=== PATIENT | female | born 1980 | race Caucasian/White ===

== ENCOUNTER → 2016-10-08 15:06 | Observation (INO) ==
[2016-10-08 13:59] LABS: Bilirubin,Urine Negative (Negative); Blood,Urine Negative (Negative); Clarity,Urine Cloudy (Clear); Color,Urine Yellow (Yellow); Glucose,Urine (UA) Normal (Normal); Ketones,Urine Negative (Negative); Leukocyte Esterase,Urine Trace (Negative); Nitrite,Urine Negative (Negative); PH,Urine 6.5 pH Units (5.0-8.0); Protein,Urine Negative (Neg-Trace); Specific Gravity,Urine 1.013 (1.010-1.025); Urobilinogen,Urine Normal (Normal)
[2016-10-08 14:04] LABS: Bacteria,Urine Few per hpf (None-Few); Hyaline Casts,Urine None Seen per lpf (None-Few); RBC,Urine 0-3 per hpf (0-3); Squamous Epithelial Cell,Urine Many per lpf (None-Few)
--- NOTE | 2016-10-08 14:52 | Discharge Summary ---
Date of Encounter: 10/08/16 Time of Encounter: 14:52 - Discharge Diagnosis (1) Decreased movement Priority: Primary Status: Acute Comments: 36-year-old female 28 weeks presents with decreased movement. Cramping began last night intermittent throughout today. Concerned for decreased movement today while at work. Upon evaluation she noticed return of normal activity most movements felt. heart rate appropriate for gestational age. Denies any other complaints such as fever, nausea, urinary complaints. Urinalysis appears contaminated with many squamous cells and not consistent with infection. Patient is stable for discharge home with appropriate follow-up. (2) 28 weeks gestation of Priority: Primary Status: Acute (3) contractions Priority: Primary Status: Acute Comments: Reports feeling contractions last night during dinner. After dinner, and continued throughout the night. by several minutes and with no regularity. None today. Rare contractions noted on monitor patient currently denies any pain cramping or contractions. FFN negative. Internal cervical os closed and long. Discussed patient with Dr. Lomeli and appropriate for discharge home - Discharge Medications Home Medications: Vit Calc,Iron,Folic [ Vitamins] 1 tab PO DAILY 10/08/16 [ History] Allergies/Adverse Reactions: Allergies No Known Allergies Allergy (Verified 09/22/16 14:27) Data Procedures and tests throughout hospitalization: Laboratory Tests 10/08/16 10/08/16 13:50 14:10 Urine Color Yellow Urine Clarity Cloudy A Urine pH 6.5 Ur Specific [place] 1.013 Urine Protein Negative Urine Glucose (UA) Normal Urine Ketones Negative Urine Blood Negative Urine Nitrite Negative Urine Bilirubin Negative Urine Urobilinogen Normal Ur Leukocyte Esterase Trace H Urine Microscopic RBC 0-3 Urine Microscopic WBC 5-15 H Ur Squamous Epith Cells Many H Urine Bacteria Few Hyaline Casts None Seen Ur Culture Indicated? YES A Fibronectin Negative Labs on day of discharge: Labs from last 24 hours 10/08/16 10/08/16 14:10 13:50 Urine Color Yellow Urine Clarity Cloudy A Urine pH 6.5 Ur Specific [place] 1.013 Urine Protein Negative Urine Glucose (UA) Normal Urine Ketones Negative Urine Blood Negative Urine Nitrite Negative Urine Bilirubin Negative Urine Urobilinogen Normal Ur Leukocyte Esterase Trace H Urine Microscopic RBC 0-3 Urine Microscopic WBC 5-15 H Ur Squamous Epith Cells Many H Urine Bacteria Few Hyaline Casts None Seen Ur Culture Indicated? YES A Fibronectin Negative Date of admission: 10/08/16 13:22 Primary care physician: Alejandro Valdez, Discharging clinician: Joya Hill Anticipated date of discharge: 10/08/16 - Patient Status Disposition: Home, Self-Care Condition: Good Functional capacity at discharge: independent ambulation Overall status at discharge: patient is back to baseline - Discharge Instructions Follow Up With: Alejandro Valdez DO [Primary Care Provider] - Isabela Rodriguez CNM [Non-Partnered Physician] - Additional Instructions: LABOR AND DELIVERY DISCHARGE INSTRUCTIONS Signs and Symptoms to be Reported to your Doctor Immediately: * Sudden gush, continuous or intermittent lead of fluid from vagina (note the time of gush and color of fluid) * Onset of bright red vaginal bleeding with or without pain (if you had a vaginal exam during this visit you may notice some dark red spotting. This is normal.) * Lower abdominal cramping or backache that is premenstrual-like feeling. * More than 6 contractions in one hour. * Burning during urination, having to urinate more frequently or pain in your mid-back. * A change in the baby's activity. This could be an increase or decrease in activity. * Severe headache which does not go away with tylenol. * Sudden swelling in the face, hands, arms and/or legs. * Upper abdominal pain - sometimes associated with heartburn or nausea and is not relieved by Maalox, Mylanta or Tums. * Dizziness or blurred vision or visual disturbances (seeing stars/lights). * Kick Counts One hour after a meal, lay down on one side in a quiet place. Count the number of julia the baby moves during an hour. If less than 6 movements, notify your physician. Diet: *Force fluids - 8-10 tall glasses of fluid per day. May include popsicles and jello. 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 Absent: respiratory distress - Cardiovascular Cardiovascular exam IM: Present: RRR, +S1, +S2. Absent: irregular rhythm - GI/Abdominal GI/Abdominal exam IM: normal bowel sounds - Additional comments: soft and non tender. - Extremities Exam Extremities exam IM: Present: full ROM, normal capillary refill, pedal edema. Absent: calf tenderness, tenderness - Neurological Exam Neurological exam: alert, normal gait, oriented X3, reflexes normal - VTE Reasons for not Prescribing Prophylaxis: Treatment not Indicated - Low risk for VTE
[2016-10-08 15:05] LABS: Candida DNA ***DETECTED*** (Not Detect); Gardnerella DNA Not Detected (Not Detect); Trichomonas DNA Not Detected (Not Detect)
== END | disposition home or self-care (01) ==
LOC: 1NENULAB
PROVIDERS: ADMIT Advanced Practice Midwife; ATTEND Advanced Practice Midwife

== ENCOUNTER 2016-11-21 14:55 | Observation (INO) ==
[2016-11-21 18:40] LABS: Trichomonas DNA Not Detected (Not Detect)
[2016-11-21 18:41] LABS: Candida DNA ***DETECTED*** (Not Detect); Gardnerella DNA Not Detected (Not Detect)
--- NOTE | 2016-12-17 15:23 | OB/GYN Progress Note ---
Date of Encounter: 12/17/16 Time of Encounter: 15:21 - Assessment and Plan (1) 38 weeks gestation of Current Visit: Yes Status: Acute (2) NST (non-stress test) reactive Current Visit: No Status: Acute (3) Pelvic pain affecting in third trimester, antepartum Current Visit: No Status: Acute (4) Uterine contractions during Current Visit: No Status: Acute SVE with no change x 2 exams. Discharge home with labor precautions. Comfort measures discussed. Subjective - Subjective Interval history: 36 year-old presenting at 38 weeks with c/o cramping, pressure, and lower back pain. She denies LOF or VB. Good FM. She recently had a urine culture that was negative and she denies new urinary sx today. Antepartum ROS: movement normal, contractions, no loss of fluid, no vaginal bleeding Objective - Exam FHR: category 1 FHR comments: NST reactive Auscultation: bilateral: normal Abdomen: Present: soft, gravid. Absent: tenderness Uterus: Present: normal. Absent: tenderness Cervical dilation: 3 Cervix effacement: 70 station: -1 Comments: no change on repeat exam - Labs Labs: Abnormal lab results Betzy species DNA DETECTED (Not Detect) Sonia 11/21/16 11:15
== END 2016-12-17 15:33 | disposition home or self-care (01) ==
LOC: LABOMLPBB 14:55 → 1NENULAB 14:55 → LABOMLPBB 14:56
PROVIDERS: ADMIT Registered Nurse; ATTEND Registered Nurse

== ENCOUNTER → 2016-11-27 16:00 | Observation (INO) ==
[2016-11-27 14:47] VITALS: BP 120/79
--- NOTE | 2016-11-27 15:08 | OB/GYN Progress Note ---
Date of Encounter: 11/27/16 Time of Encounter: 15:04 - Assessment and Plan (1) 35 weeks gestation of Current Visit: Yes Status: Acute admited for observation (2) NST (non-stress test) reactive Current Visit: Yes Status: Acute 135 bpm baseline, reactive NST (3) Pelvic pain affecting in third trimester, antepartum Current Visit: Yes Status: Acute INFANT is VTX, head noted on pubic bone: discussed comfort interventions. Subjective - Subjective Principal diagnosis: pelvic pain and pressure Interval history: Patient is 36 y/o female that is a at 35w1d presents to labor and delivery with c/o increased pelvic pain and pressure. Patient reports pressure to be stronger when standing or walking. Patient denies contractions, LOF or VB. Patient reports +FM but reports movement was decreased. Patient denies any urinary symptoms. SVE 1/thick. GBS culture collected prior to SVE. NST reactive. FHR 135 bpm moderate variability +15x15 accels no decels noted. Antepartum ROS: no loss of fluid, no vaginal bleeding, no contractions Objective - Vital Signs Vital Signs: Vital Signs Temp Pulse Resp BP 11/27/16 14:37 98.3 F 90 20 120/79 Intake and Output 11/26/16 11/27/16 11/27/16 23:59 07:59 15:59 Other: Weight 73.2 kg Patient Weight 11/27/16 23:59 Weight 73.2 kg - Exam FHR: auscultation normal, category 1 FHR comments: baseline 135 bpm moderate variability +15x15 accels no decels noted. no contractions noted. Auscultation: bilateral: normal Abdomen: Present: normal appearance, soft, gravid Uterus: Present: normal, firm Cervical dilation: 1 Cervix effacement: thick station: -2
[2016-11-27 15:15] LABS: Bilirubin,Urine Negative (Negative); Blood,Urine Negative (Negative); Color,Urine Yellow (Yellow); Glucose,Urine (UA) Normal (Normal); Ketones,Urine Negative (Negative); Leukocyte Esterase,Urine Small (Negative); Nitrite,Urine Negative (Negative); PH,Urine 6.5 pH Units (5.0-8.0); Protein,Urine Negative (Neg-Trace); Specific Gravity,Urine 1.011 (1.010-1.025); Urobilinogen,Urine Normal (Normal)
[2016-11-27 15:17] LABS: Clarity,Urine Clear (Clear)
[2016-11-27 15:18] LABS: Bacteria,Urine Many per hpf (None-Few); Hyaline Casts,Urine None Seen per lpf (None-Few); Squamous Epithelial Cell,Urine Many per lpf (None-Few)
[2016-11-27 15:35] LABS: RBC,Urine 0-3 per hpf (0-3)
--- NOTE | 2016-11-27 15:50 | Discharge Summary ---
Date of Encounter: 11/27/16 Time of Encounter: 15:49 - Discharge Diagnosis (1) 35 weeks gestation of Priority: Primary Status: Acute Comments: false labor (2) NST (non-stress test) reactive Priority: Secondary Status: Acute Comments: reactive nst (3) Pelvic pain affecting in third trimester, antepartum Priority: Secondary Status: Acute - Discharge Medications Home Medications: Vit Calc,Iron,Folic [ Vitamins] 1 tab PO DAILY 10/08/16 [ History] Famotidine [Pepcid] 40 mg PO 11/27/16 [History] Allergies/Adverse Reactions: Allergies No Known Allergies Allergy (Verified 11/27/16 14:47) Data Procedures and tests throughout hospitalization: Laboratory Tests 11/27/16 14:45 Urine Color Yellow Urine Clarity Clear Urine pH 6.5 Ur Specific [place] 1.011 Urine Protein Negative Urine Glucose (UA) Normal Urine Ketones Negative Urine Blood Negative Urine Nitrite Negative Urine Bilirubin Negative Urine Urobilinogen Normal Ur Leukocyte Esterase Small H Urine Microscopic RBC 0-3 Urine Microscopic WBC 5-15 H Ur Squamous Epith Cells Many H Urine Bacteria Many H Hyaline Casts None Seen Ur Culture Indicated? YES A Labs on day of discharge: Labs from last 24 hours 11/27/16 14:45 Urine Color Yellow Urine Clarity Clear Urine pH 6.5 Ur Specific [place] 1.011 Urine Protein Negative Urine Glucose (UA) Normal Urine Ketones Negative Urine Blood Negative Urine Nitrite Negative Urine Bilirubin Negative Urine Urobilinogen Normal Ur Leukocyte Esterase Small H Urine Microscopic RBC 0-3 Urine Microscopic WBC 5-15 H Ur Squamous Epith Cells Many H Urine Bacteria Many H Hyaline Casts None Seen Ur Culture Indicated? YES A Date of admission: 11/27/16 14:07 Primary care physician: PCP NO Discharging clinician: Candie Burgess (olena) Anticipated date of discharge: 11/27/16 - Patient Status Disposition: Home, Self-Care Condition: Good Functional capacity at discharge: independent ambulation - Discharge Instructions Follow Up With: NO,PCP [Primary Care Provider] - Isabela Rodriguez CNM [Non-Partnered Physician] - - Diet and Activity Activity: increase activity as tolerated Diet: regular diet Hospital Course METAL CLEANER Time Attestation: Total time spent providing and/or coordinating discharge services: Time Spent: Less than 30 minutes Exam - Constitutional Vitals: Temp Pulse Resp BP 98.3 F 90 20 120/79 05/30/17 14:37 11/27/16 14:37 11/27/16 14:37 11/27/16 14:37 General appearance IM: A&O X 3, pleasant, answers questions appropriately - Respiratory Respiratory exam: Present: CTAB - Cardiovascular Cardiovascular exam IM: Present: RRR, +S1, +S2 - VTE Reasons for not Prescribing Prophylaxis: Treatment not Indicated - Low risk for VTE
== END | disposition home or self-care (01) ==
LOC: 1NENULAB
PROVIDERS: ADMIT Obstetrics & Gynecology; ATTEND Obstetrics & Gynecology

== ENCOUNTER → 2016-12-11 13:36 | Observation (INO) ==
[2016-12-11 09:39] LABS: Bilirubin,Urine Negative (Negative); Blood,Urine Negative (Negative); Clarity,Urine Cloudy (Clear); Color,Urine Yellow (Yellow); Glucose,Urine (UA) Normal (Normal); Ketones,Urine Negative (Negative); Leukocyte Esterase,Urine Trace (Negative); Nitrite,Urine Negative (Negative); Protein,Urine Trace mg/dL (Neg-Trace); Specific Gravity,Urine 1.015 (1.010-1.025); Urobilinogen,Urine Normal (Normal)
[2016-12-11 09:42] LABS: Bacteria,Urine Many per hpf (None-Few); Hyaline Casts,Urine None Seen per lpf (None-Few); Squamous Epithelial Cell,Urine Many per lpf (None-Few); WBC,Urine 15-30 per hpf (0-3)
[2016-12-11 09:53] LABS: Mucus,Urine Few (Few); RBC,Urine 0-3 per hpf (0-3)
[2016-12-11 12:01] LABS: Basophils # 0.1 K/mcL (0.0-0.2); Basophils % 0.4 %; Eosinophils # 0.1 K/mcL (0.0-0.6); Eosinophils % 0.8 %; Hematocrit 36.1 % (35.3-44.9); Hemoglobin 11.9 g/dL (11.5-15.4); Immature Granulocytes % 1.9 % (0-4); Immature Platelets 11.8 % (1.1-6.1); Lymphocytes # 1.6 K/mcL (0.6-4.6); Lymphocytes % 12.8 %; Mean Corpuscular Hemoglobin 27.6 pg (28.0-33.3); Mean Corpuscular Volume 83.8 fL (83.0-100.0); Mean Platelet Volume 11.6 fL (9.4-12.4); Monocytes # 0.8 K/mcL (0.0-1.3); Monocytes % 6.6 %; Neutrophils # 9.8 K/mcL (1.6-8.9); Nucleated Red Blood Cells 0.2 /100 WBC (0); Platelet Count 195 K/mcL (140-400); Red Blood Count 4.31 M/mcL (3.82-4.97); Red Cell Distribution Width 13.5 % (11.5-14.5); Segmented Neutrophils % 77.5 %
[2016-12-11 12:20] LABS: Alanine Aminotransferase 15 Units/L (0-55); Aspartate Amino Transferase 27 Units/L (5-34); BUN/Creatinine Ratio 12 (6-26); Blood Urea Nitrogen 7 mg/dL (7-20); Lactate Dehydrogenase 292 Units/L (159-327); Uric Acid 4.6 mg/dL (2.6-6.0); eGFR For African Americans > 60 (> 60); eGFR For Non-African Americans > 60 (> 60)
[2016-12-11 12:55] LABS: Protein/Creatinine Ratio,Urine 0.42 mg/mg (0-0.20)
--- NOTE | 2016-12-11 13:24 | Discharge Summary ---
Date of Encounter: 12/11/16 Time of Encounter: 13:28 - Discharge Diagnosis (1) 37 weeks gestation of Priority: Primary Status: Acute Comments: Patient arrived to labor and delivery triage with c/o decreased movement and pain in her right leg associated with an increase in swelling. She states positive, but decreased movement. She denies headache, epigastric pain, visual disturbances, leaking of lfuid, vaginal discharge, and contractions/ cramping. She states that she was seen last week () and diagnosed with cellulitis in the lower abdomen by Flynn Hill CNM and Dr. Borja and is currently on Bactrim. She states that her right lower leg began hurting this mornring and that it is more swollen than the other leg; it is tender to touch on her right posterior calf. She is concerned her cellulitis has spread to this area of her body. 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 POC per consult with Dr Armani Lomeli assessed patient and recommended PIH labs due to increase in edema. PIH labs within normal limits. Serial blood pressures WNL Urine protein creatinine ratio 0.42. Continue outpatient monitoring PIH precautions given Labor precautions given Follow up in office with routine as scheduled tomorrow. (2) Uterine contractions during Priority: Secondary Status: Acute Comments: Contractions appeared to be irritability on the monitor upon initial presentation. Urine sent for urinalysis and culture - urine contaminated, culture pending IV fluid bolus of LR x 1 liter Irritability has stopped upon discharge, but contractions have started every 3- 5 minutes. Serial cervical exam per RN - No change. Discharge home with labor precautions (3) Edema of right lower extremity Priority: Primary Status: Acute Comments: Venous doppler negative Continue to monitor POC per consult with Dr Lomeli (4) Decreased movement Priority: Primary Status: Acute Comments: Movement felt by patient upon NST initiation NST reactive. (5) NST (non-stress test) reactive Priority: Primary Status: Acute Comments: Category I tracing; NST reactive Follow up in office with routine care as scheduled. IOL scheduled for 39 weeks per chart. - Discharge Medications Home Medications: Vit Calc,Iron,Folic [ Vitamins] 1 tab PO DAILY 10/08/16 [ History] Famotidine [Pepcid] 40 mg PO 11/27/16 [History] Bactrim 12/11/16 [History] Allergies/Adverse Reactions: Allergies No Known Allergies Allergy (Verified 11/27/16 14:47) Data Procedures and tests throughout hospitalization: Laboratory Tests 12/11/16 12/11/16 12/11/16 09:30 11:41 11:41 WBC 12.6 H RBC 4.31 Hgb 11.9 Hct 36.1 MCV 83.8 MCH 27.6 L MCHC 33.0 RDW 13.5 Plt Count 195 MPV 11.6 Immature Gran % 1.9 Seg Neutrophils % 77.5 Lymphocytes % 12.8 Monocytes % 6.6 Eosinophils % 0.8 Basophils % 0.4 Neutrophils # 9.8 H Lymphocytes # 1.6 Monocytes # 0.8 Eosinophils # 0.1 Basophils # 0.1 Nucleated RBCs/100 WBC 0.2 H Immature Plt Fraction 11.8 H BUN 7 Creatinine 0.60 Est GFR ( Amer) > 60 Est GFR (Non-Af Amer) > 60 BUN/Creatinine Ratio 12 Uric Acid 4.6 AST 27 ALT 15 Lactate Dehydrogenase 292 Urine Color Yellow Urine Clarity Cloudy A Urine pH 6.0 Ur Specific [place] 1.015 Urine Protein Trace Urine Glucose (UA) Normal Urine Ketones Negative Urine Blood Negative Urine Nitrite Negative Urine Bilirubin Negative Urine Urobilinogen Normal Ur Leukocyte Esterase Trace H Urine Microscopic RBC 0-3 Urine Microscopic WBC 15-30 H Ur Squamous Epith Cells Many H Urine Bacteria Many H Hyaline Casts None Seen Urine Mucus Few Ur Culture Indicated? YES A Urine Creatinine Protein/Creatinin Ratio Urine Total Protein 12/11/16 12:34 WBC RBC Hgb Hct MCV MCH MCHC RDW Plt Count MPV Immature Gran % Seg Neutrophils % Lymphocytes % Monocytes % Eosinophils % Basophils % Neutrophils # Lymphocytes # Monocytes # Eosinophils # Basophils # Nucleated RBCs/100 WBC Immature Plt Fraction BUN Creatinine Est GFR ( Amer) Est GFR (Non-Af Amer) BUN/Creatinine Ratio Uric Acid AST ALT Lactate Dehydrogenase Urine Color Urine Clarity Urine pH Ur Specific [place] Urine Protein Urine Glucose (UA) Urine Ketones Urine Blood Urine Nitrite Urine Bilirubin Urine Urobilinogen Ur Leukocyte Esterase Urine Microscopic RBC Urine Microscopic WBC Ur Squamous Epith Cells Urine Bacteria Hyaline Casts Urine Mucus Ur Culture Indicated? Urine Creatinine 26 Protein/Creatinin Ratio 0.42 H Urine Total Protein 11 Labs on day of discharge: Labs from last 24 hours 12/11/16 12/11/16 12/11/16 12:34 11:41 11:41 WBC 12.6 H RBC 4.31 Hgb 11.9 Hct 36.1 MCV 83.8 MCH 27.6 L MCHC 33.0 RDW 13.5 Plt Count 195 MPV 11.6 Immature Gran % 1.9 Seg Neutrophils % 77.5 Lymphocytes % 12.8 Monocytes % 6.6 Eosinophils % 0.8 Basophils % 0.4 Neutrophils # 9.8 H Lymphocytes # 1.6 Monocytes # 0.8 Eosinophils # 0.1 Basophils # 0.1 Nucleated RBCs/100 WBC 0.2 H Immature Plt Fraction 11.8 H BUN 7 Creatinine 0.60 Est GFR ( Amer) > 60 Est GFR (Non-Af Amer) > 60 BUN/Creatinine Ratio 12 Uric Acid 4.6 AST 27 ALT 15 Lactate Dehydrogenase 292 Urine Color Urine Clarity Urine pH Ur Specific [place] Urine Protein Urine Glucose (UA) Urine Ketones Urine Blood Urine Nitrite Urine Bilirubin Urine Urobilinogen Ur Leukocyte Esterase Urine Microscopic RBC Urine Microscopic WBC Ur Squamous Epith Cells Urine Bacteria Hyaline Casts Urine Mucus Ur Culture Indicated? Urine Creatinine 26 Protein/Creatinin Ratio 0.42 H Urine Total Protein 11 12/11/16 09:30 WBC RBC Hgb Hct MCV MCH MCHC RDW Plt Count MPV Immature Gran % Seg Neutrophils % Lymphocytes % Monocytes % Eosinophils % Basophils % Neutrophils # Lymphocytes # Monocytes # Eosinophils # Basophils # Nucleated RBCs/100 WBC Immature Plt Fraction BUN Creatinine Est GFR ( Amer) Est GFR (Non-Af Amer) BUN/Creatinine Ratio Uric Acid AST ALT Lactate Dehydrogenase Urine Color Yellow Urine Clarity Cloudy A Urine pH 6.0 Ur Specific [place] 1.015 Urine Protein Trace Urine Glucose (UA) Normal Urine Ketones Negative Urine Blood Negative Urine Nitrite Negative Urine Bilirubin Negative Urine Urobilinogen Normal Ur Leukocyte Esterase Trace H Urine Microscopic RBC 0-3 Urine Microscopic WBC 15-30 H Ur Squamous Epith Cells Many H Urine Bacteria Many H Hyaline Casts None Seen Urine Mucus Few Ur Culture Indicated? YES A Urine Creatinine Protein/Creatinin Ratio Urine Total Protein Date of admission: 12/11/16 09:01 Primary care physician: Alejandro Valdez, Discharging clinician: Kyra Deal Anticipated date of discharge: 12/11/16 - Patient Status Disposition: Home, Self-Care Condition: Good Functional capacity at discharge: independent ambulation Overall status at discharge: patient is back to baseline - Discharge Instructions Follow Up With: Alejandro Valdez DO [Primary Care Provider] - Isabela Rodriguez CNM [Non-Partnered Physician] - Forms: Work/School Release Additional Instructions: LABOR AND DELIVERY DISCHARGE INSTRUCTIONS Signs and Symptoms to be Reported to your Doctor Immediately: * Sudden gush, continuous or intermittent lead of fluid from vagina (note the time of gush and color of fluid) * Onset of bright red vaginal bleeding with or without pain (if you had a vaginal exam during this visit you may notice some dark red spotting. This is normal.) * Lower abdominal cramping or backache that is premenstrual-like feeling. * More than 6 contractions in one hour. * Burning during urination, having to urinate more frequently or pain in your mid-back. * A change in the baby's activity. This could be an increase or decrease in activity. * Severe headache which does not go away with tylenol. * Sudden swelling in the face, hands, arms and/or legs. * Upper abdominal pain - sometimes associated with heartburn or nausea and is not relieved by Maalox, Mylanta or Tums. * Dizziness or blurred vision or visual disturbances (seeing stars/lights). * Kick Counts One hour after a meal, lay down on one side in a quiet place. Count the number of julia the baby moves during an hour. If less than 6 movements, notify your physician. Diet: *Force fluids - 8-10 tall glasses of fluid per day. May include popsicles and jello. *Limit caffeine - this includes chocolate, coffee, tea, any soft drink containing such as all chip, Jv Yellow and Mountain Dew - Diet and Activity Activity: resume usual activities as tolerated Diet: regular diet Hospital Course MAINTENANCE TECHNICIAN Time Attestation: Total time spent providing and/or coordinating discharge services: Exam - Constitutional General appearance IM: cooperative, A&O X 3, pleasant - Respiratory Respiratory exam: Present: CTAB - Cardiovascular Cardiovascular exam IM: Present: RRR, +S1, +S2 - GI/Abdominal GI/Abdominal exam IM: normal bowel sounds, soft - Rectal Rectal exam: deferred - Additional comments: Gravid appropriate for gestational age FHTs 130's with moderate variability and 15x15 accels. no decels Contractions every 3-5 minutes; palpate mild. uterus palpates soft between contractions. Category I Reactive NST - Extremities Exam Extremities exam IM: Present: calf tenderness (right sided tenderness & swelling ), normal capillary refill, pedal edema (2+ edema right and 1+ edema left), radial pulses palpable and symetrical - Neurological Exam Neurological exam: alert, oriented X3, reflexes normal - VTE Reasons for not Prescribing Prophylaxis: Treatment not Indicated - Low risk for VTE
[~2016-12-11 13:36] MED LIST: Ringers Solution, Lactated 1,000 ML IVC ONE; Ringers Solution, Lactated 1,000 ML ONE
--- NOTE | 2016-12-12 19:04 | Venous Imaging Report ---
LE Venous Duplex Patient Name:Bibi Garcia Order Number:[id number] Procedure Date:12/11/2016 Date:1980Age:36 yrs Gender:Female Location:[facility] Room #: 1N07 Layout Artist:Jh Miller RDCS Referring MD:Debo Lomeli MD public weigher:Jose Valdez, Reading MD:Reagan Hammond MD , FACS Primary Indications:Swelling Secondary Indications: Risk Factors Yes/No None Impressions: Right lower extremity: normal superficial and deep exam. Left lower extremity: normal contralateral exam. Recommendations: After imaging the patient returned home. Pt . Critical findings reported to Avani in person by Jh Miller RDCS. Findings Venous Duplex Results: Right: Venous imaging of the lower extremity reveals full patency and normal vessel compressibility of the right distal iliac, right common femoral, right superficial femoral, right popliteal, right posterior tibial, right peroneal, right great saphenous and right lesser saphenous. Doppler signals in the evaluated veins were normal. Left: Venous imaging of the lower extremity reveals full patency and normal vessel compressibility of the left common femoral. Doppler signals in the evaluated veins were normal. Lower Extremity Venous Duplex Side Vein Compress Spontaneous Flow Augment Diameter (cm) Depth (cm) Right Distal Iliac Normal Yes Phasic Yes Right Common Femoral Normal Yes Phasic Yes Right Superficial Femoral Normal Yes Phasic Yes Right Popliteal Normal Yes Phasic Yes Right Posterior Tibial Normal Yes Phasic Yes Right Peroneal Normal Yes Phasic Yes Right Great Saphenous Normal Yes Phasic Yes Right Lesser Saphenous Normal Yes Phasic Yes Left Common Femoral Normal Yes Phasic Yes Updated by Reagan Hammond MD, FACS on 12/12/2016 6:59:04 PM Reagan Hammond MD electronically signed on 12/12/2016 6:59:19 PM with status of Final
== END | disposition home or self-care (01) ==
LOC: 1NENULAB
PROVIDERS: ADMIT Student in an Organized Health Care Education/Training Program; ATTEND Student in an Organized Health Care Education/Training Program

== ENCOUNTER 2016-12-17 13:49 | Observation (INO) | END 2016-12-17 15:33 | disposition home or self-care (01) | LOC: 1NENULAB | PROVIDERS: ADMIT Registered Nurse; ATTEND Registered Nurse ==

== ENCOUNTER 2016-12-19 09:27 | Observation (INO) ==
[2016-12-19 09:56] VITALS: BP 131/88
--- NOTE | 2016-12-19 11:39 | Discharge Summary ---
Date of Encounter: 12/19/16 Time of Encounter: 11:40 - Discharge Diagnosis (1) 38 weeks gestation of Priority: Primary Status: Acute Comments: admit for observation for labor evaluation (2) NST (non-stress test) reactive Priority: Secondary Status: Acute Comments: Baseline 140 bpm moderate variability +15x15 accels no decels noted. - Discharge Medications Home Medications: Vit Calc,Iron,Folic [ Vitamins] 1 tab PO DAILY 10/08/16 [ History] Famotidine [Pepcid] 40 mg PO BID 11/27/16 [History] Bactrim 1 / PO BID 12/11/16 [History] Allergies/Adverse Reactions: Allergies No Known Allergies Allergy (Verified 11/27/16 14:47) Date of admission: 12/19/16 09:27 Primary care physician: Alejandro Valdez, Discharging clinician: Candie Burgess Anticipated date of discharge: 12/19/16 - Patient Status Disposition: Home, Self-Care Condition: Good Functional capacity at discharge: independent ambulation - Discharge Instructions Follow Up With: Alejandro Valdez DO [Primary Care Provider] - Isabela Rodriguez CNM [Non-Partnered Physician] - - Diet and Activity Activity: increase activity as tolerated Diet: regular diet Hospital Course EDUCATION PROGRAM SPECIALIST Hospital course: Patient is 36 y/o AT 38w2d presents to labor and delivery for contractions and vaginal pressure. Time Attestation: Total time spent providing and/or coordinating discharge services: Time Spent: Less than 30 minutes Exam - Constitutional Vitals: Temp Pulse Resp BP 98.1 F 116 14 131/88 12/19/16 09:33 12/19/16 09:33 12/19/16 09:33 12/19/16 09:33 General appearance IM: A&O X 3, pleasant, answers questions appropriately - Respiratory Respiratory exam: Present: CTAB - Cardiovascular Cardiovascular exam IM: Present: RRR, +S1, +S2 - GI/Abdominal GI/Abdominal exam IM: normal bowel sounds - Extremities Exam Extremities exam IM: Present: full ROM, normal capillary refill, pedal edema (1+ ) - Neurological Exam Neurological exam: alert, oriented X3, reflexes normal (FHR 140 bpm moderate variability +15x15 accels no decels noted. Irregular contractions noted. Cat. 1 tracing.) - VTE Reasons for not Prescribing Prophylaxis: Treatment not Indicated - Low risk for VTE
== END 2016-12-19 12:15 | disposition home or self-care (01) ==
LOC: 1NENULAB
PROVIDERS: ADMIT Obstetrics & Gynecology; ATTEND Obstetrics & Gynecology

== ENCOUNTER 2016-12-24 05:58 | Inpatient (IN) ==
[2016-12-24 07:01] LABS: Basophils # 0.1 K/mcL (0.0-0.2); Basophils % 0.5 %; Eosinophils # 0.2 K/mcL (0.0-0.6); Eosinophils % 1.3 %; Hemoglobin 11.2 g/dL (11.5-15.4); Immature Granulocytes % 2.6 % (0-4); Immature Platelets 11.7 % (1.1-6.1); Lymphocytes # 2.3 K/mcL (0.6-4.6); Lymphocytes % 17.9 %; Mean Corpuscular Hemoglobin 26.8 pg (28.0-33.3); Mean Corpuscular Volume 83.7 fL (83.0-100.0); Mean Platelet Volume 11.6 fL (9.4-12.4); Monocytes # 0.8 K/mcL (0.0-1.3); Monocytes % 6.1 %; Neutrophils # 9.2 K/mcL (1.6-8.9); Nucleated Red Blood Cells 0.5 /100 WBC (0); Platelet Count 190 K/mcL (140-400); Red Blood Count 4.18 M/mcL (3.82-4.97); Red Cell Distribution Width 14.2 % (11.5-14.5); Segmented Neutrophils % 71.6 %
[2016-12-24 07:14] LABS: Alanine Aminotransferase 12 Units/L (0-55); Aspartate Amino Transferase 28 Units/L (5-34); BUN/Creatinine Ratio 13 (6-26); Blood Urea Nitrogen 8 mg/dL (7-20); Lactate Dehydrogenase 365 Units/L (159-327); Uric Acid 4.9 mg/dL (2.6-6.0); eGFR For African Americans > 60 (> 60); eGFR For Non-African Americans > 60 (> 60)
--- NOTE | 2016-12-24 07:29 | Anesthesia Evaluation PreOp ---
Date of Encounter: 12/24/16 Time of Encounter: 07:22 - Past History Planned Operation: vaginal del, , induction Cardiac History: Denies any Significant Hx Pulmonary History: Denies Any Significant HX GAME PROGRAMMER History: Denies Any Significant HX Other Medical History: Denies Any Significant HX Anesthesia History: No Prior Anesthetic Complications, Past Anesthesia (3 previous epidurals) : Yes Alcohol Use: none Drug use: none Medications and Allergies Vit Calc,Iron,Folic [ Vitamins] 1 tab PO DAILY 10/08/16 [ History] Famotidine [Pepcid] 40 mg PO BID 11/27/16 [History] Allergies No Known Allergies Allergy (Verified 11/27/16 14:47) Anesthesia Results - Labs 12/24/16 06:50 12/24/16 06:50 Anesthesia Exam - HEENT Pupil (Motor): Pupils equal Mallampati: II Teeth: Normal Oral Opening: Greater than 3 - GAME PROGRAMMER LOC: Oriented GAME PROGRAMMER Motor: Normal RUE, Normal LUE, Normal RLE, Normal LLE, Normal Face GAME PROGRAMMER Sensory: Normal: RUE, LUE, RLE, LLE, Face - Cardiac Rhythm: Regular Murmur: None - Pulmonary Breath Sounds: bilateral Clear Respiratory Effort: Symmetrical Anesthesia Assess/Plan ASA Score: 2 Modified Paulo Scale for Level of Consciousness: Cooperative, oriented, and tranquil Anesthetic Plan: General, Regional Monitoring Plan: Standard Monitors
[2016-12-24] MEDS ORDERED: Epidural Premix (fent/bupiv) 110 ML EP ONE (07:39)
[2016-12-24] MEDS ORDERED: Famotidine 20 MG/2 ML VIAL IVP PRN (07:44)
[2016-12-24] MEDS ORDERED: Naloxone 0.4 MG/ML INJ IVP PRN (07:44)
[2016-12-24] MEDS ORDERED: miSOPROStol 25 MCG TABLET PO PRN (07:44)
[2016-12-24] MEDS ORDERED: *HR* Nalbuphine 20 MG/ML AMPUL IVP PRN (07:44)
[2016-12-24] MEDS ORDERED: Ondansetron 4 MG/2 ML VIAL IVP PRN (07:44)
--- NOTE | 2016-12-24 08:00 | OB/GYN History & Physical ---
Date of Encounter: 12/24/16 Time of Encounter: 07:50 Assessment and Plan (1) 39 weeks gestation of Current visit: Yes Status: Acute Admit to labor and delivery for IOL. GBS negative Cytotec induction Consider AROM for augmentation. May have nubain/epidural upon request for pain control Patient measuring size>dates; Dr Borja notified upon admission Anticipate vaginal delivery POC per consult with Dr Borja. History of Present Illness Chief complaint: IOL HPI: Ms. Garcia is a 36 year old female at 39 weeks and 0 days gestation that arrives to labor and delivery for scheduled IOL. This has been complicated by advanced maternal age, cellulitis of the lower abdomen treated with bactrim, and a history of PIH in her first . The EFW was in the 86.9 percentile at 36 weeks weighting 7lb 3oz (3263g) per ultrasound. She has been measuring size greater than dates. Her blood type is A+. She is GBS negative. She is rubella immune. She is Hep B negative, HIV negative, and RPR negative. She is varicella equivocal and will be encouraged to booster her varicella vaccination with her PCP after delivery. Past Med Surg Social Fam HX - Past Medical History Medical history: other Psychiatric history: no psych history - Past Surgical History Surgical History: other - Social History Smoking Status: Never smoker Smokeless Tobacco Status: No Alcohol use: none Drug use: none - Family History Mother Adopted: No Living Status: Still Living Hx Family Cardiac Disorders: Yes Hx Family Respiratory Disorders: No Hx Family Cancer: No Hx Family GI Disorders: No Hx Family Genitourinary Disorders: No Hx Family Endocrine Disorder: Yes (diabetes) Hx Family Musculoskeletal Disorders: No Hx Family Neuromuscular Disorders: No Hx Family Neurologic Disorders: No Hx Family HEENT Disorders: No Hx Family Autoimmune Disorders: No Hx Family Reproductive Disorders: No Hx Family Psychosocial Disorders: No Hx Family Medical Disorders: No Obstetrical History - Pregnancies : 4 Para: 3 Term: 3 : 0 Ab's: 0 Livin Medications and Allergies Vit Calc,Iron,Folic [ Vitamins] 1 tab PO DAILY 10/08/16 [ History] Famotidine [Pepcid] 40 mg PO BID 11/27/16 [History] Allergies No Known Allergies Allergy (Verified 11/27/16 14:47) Review of System OB All systems PM: reviewed and no additional remarkable complaints except as stated Exam - Constitutional Constitutional: well developed, well nourished, no acute distress, average body habitus - HEENT HEENT: Normocephaly, Mucus Membranes Moist - Neck Neck exam: full ROM - Lungs Respiratory exam: CTAB - Cardiovascular Cardiovascular exam: RRR, +S1, +S2 - Abdomen Abdomen: Present: bowel sounds normal, gravid, non tender - Extremities Extremities exam: normal capillary refill, normal inspection, pedal edema ( edema to mid thigh), radial pulses palpable and symetrical - Vagina Vagina: Present: normal moisture - Cervix Dilation: 2 (2-3) Effacement: 70 Station: -2 - Uterus Uterus exam: Present: enlarged (Measuring S>D), normal contour - Anus/Rectum Anus/Rectum: Present: normal perianal skin Results Result Diagrams: 12/24/16 06:50 12/24/16 06:50 Abnormal lab results WBC 12.9 K/mcL (4.3-11.1) H 12/24/16 06:50 Hgb 11.2 g/dL (11.5-15.4) L 12/24/16 06:50 Hct 35.0 % (35.3-44.9) L 12/24/16 06:50 MCH 26.8 pg (28.0-33.3) L 12/24/16 06:50 Neutrophils # 9.2 K/mcL (1.6-8.9) H 12/24/16 06:50 Nucleated RBCs/100 WBC 0.5 /100 WBC (0) H 12/24/16 06:50 Immature Plt Fraction 11.7 % (1.1-6.1) H 12/24/16 06:50 Lactate Dehydrogenase 365 Units/L (159-327) H 12/24/16 06:50 All other labs normal. - VTE Reasons for not Prescribing Prophylaxis: Treatment not Indicated - Low risk for VTE
[2016-12-24] MEDS: Ringers Solution, Lactated 1,000 ML IVC SCH (08:20)
--- NOTE | 2016-12-24 12:38 | OB Labor Progress Note ---
Date of Encounter: 12/24/16 Time of Encounter: 12:35 Labor Progress Note - Subjective Subjective: Patient laying in bed. States she can feel contractions, but are tolerable. - Vital Signs Vital Signs: VSS - Cervix Cervix: 4/70/-2 - Heart Tones Heart Tones: 120's moderate variability and 15x15 accels. No decels. - [place]: Contractions every 2 minutes 45-60 seconds in length. palpate mild/moderate. uterus palpates soft between contractions - Interventions Interventions: AROM for small amount of clear fluid. Patient and fetus tolerated well. - Plan Plan: Continue routine labor management GBS negative Patient may have epidural/ nubain upon request Consider pitocin IV for augmentation if needed for adequate contraction pattern Anticipate vaginal delivery POC per consult with Dr Borja.
--- NOTE | 2016-12-24 14:48 | Anesthesia Procedures ---
Date of Encounter: 12/24/16 Time of Encounter: 14:29 Procedures: Anesthesia - Epidural/Spinal Patient ID/Chart reviewed: Yes Patient examined: Yes OB Eval: : 4 OB Eval: Hx Para: 3 OB Eval: Contractions: Non-stressed pattern Consent Obtained: Yes Supplemental Oxygen: None/Room Air Site Prep: Aseptic Technique, Sterile prep and drape, 0.5% Chlorhexidine/Alcohol Patient position: upright Local Anesthetic: Lidocaine 1% Amount of Local Anesthetic used: 2 Touhy Needle Gauge: 18 Touhy Needle Depth (cm): 5 Test Dose (1.5% Lido + Epi): Volume given (mls): 3 Test Dose Result: Negative Loading Dose: Other: from solution Loading Dose Administered: Thru Catheter Infusion Med: 0.125% Bupivacaine w/ 2 mcg/ml Fentanyl Infusion Rate (mls/hr): [address]: Tegaderm, Tape Interspace Used: L3-L4 Loss of Resistance (MINI): Yes (saline) Blood: No CSF: No Paresthesia: No Vitals + FHT's: vss though out, FHR via RN's
--- NOTE | 2016-12-24 15:23 | OB Labor Progress Note ---
Date of Encounter: 12/24/16 Time of Encounter: 15:20 Labor Progress Note - Subjective Subjective: Patient resting comfortably in bed after epidural. States she is very comfortable and tired. - Vital Signs Vital Signs: VSS - Cervix Cervix: 5-6/80/-1 - Heart Tones Heart Tones: 120's moderate variability with 15 x 15 accels and no decels - [place]: COntractions every 1-5 minutes. Palpate soft between contractions. contractions palpate mild - moderate - Interventions Interventions: IUPC placed without difficulty, fetus and patient tolerated well. - Plan Plan: Continue routine labor management. Pain is well controlled Patient is GBS negative Consider IV pitocin for augmentation if needed Anticipate vaginal delivery POC per consult with Dr Borja.
--- NOTE | 2016-12-24 16:44 | OB Labor Progress Note ---
Date of Encounter: 12/24/16 Time of Encounter: 16:40 Labor Progress Note - Subjective Subjective: Patient resting comfortably on peanut ball on right side. - Vital Signs Vital Signs: VSS - Cervix Cervix: 6-7/80/-1 - Heart Tones Heart Tones: 120's moderate variability with 15 x 15 accels. no decels. - [place]: Couplets every 4-5 minutes. Peak at 40-55. - Interventions Interventions: Pitocin ordered for augmentation. Patient rotated to left side with peanut ball - Plan Plan: Continue routine labor management Pain well controlled GBS negative Start pitocin at 2x2 max 20mu/min; iupc in place and tracing Anticipate vaginal delivery POC per consult with Dr Borja.
[2016-12-24] MEDS ORDERED: Oxytocin 20 units/ LR 1000 mL 20 UNIT/1,000 ML BAG IVC SCH (16:45)
--- NOTE | 2016-12-24 18:07 | OB Labor Progress Note ---
Date of Encounter: 12/24/16 Time of Encounter: 17:30 Labor Progress Note - Subjective Subjective: Patient state she is feeling a lot of pressure, but states she is not feeling like she needs to push. - Vital Signs Vital Signs: VSS - Cervix Cervix: 8/swelling on right side of cervix, 80 on left/-1 - Heart Tones Heart Tones: 120's moderate variability with 15 x 15 accels and no decels. - [place]: Contractions every 2-3 minutes 60 seconds in length - Interventions Interventions: Rotated onto right side with peanut ball. - Plan Plan: Continue routine labor management Patient is feeling a lot of pressure; declines epidural bolus from SENIOR SCHEDULER at this time GBS negative Frequent position changes to help with dilation and effacement Dr Borja notified of swelling noted to cervix and potential for delivery if not decreased POC per consult with Dr Borja.
[2016-12-24] MEDS ORDERED: Lidocaine/EPI 1:200k 2% PF 20 ML VIAL ONE ×2 (18:38→20:39)
--- NOTE | 2016-12-24 18:52 | Anesthesia Progress Note ---
Date of Encounter: 12/24/16 Time of Encounter: 18:39 Anesthesia Note - Note Note: 12/24/16 18:51 patient bolus (7ml) 3.5ml of 0.5% bup plain, 3.5ml lido with EPI after neg aspiration. vss though out,
[2016-12-24] MEDS ORDERED: Metoclopramide 10 MG/2 ML VIAL IVP ONE (20:42)
[2016-12-24] MEDS ORDERED: Ringers Solution, Lactated 1,000 ML ONE (21:01)
[2016-12-24] MEDS ORDERED: *HR* Oxytocin 10 UNIT/ML VIAL IM ONE (21:01)
[2016-12-24] MEDS ORDERED: *HR* Morphine Sulfate/PF 5 MG/10 ML AMPUL ONE (21:03)
--- NOTE | 2016-12-24 21:03 | OB Labor Progress Note ---
Date of Encounter: 12/24/16 Time of Encounter: 20:45 Labor Progress Note - Subjective Subjective: Patient very tired in bed; difficulty keeping eyes open. Pain well controlled. - Vital Signs Vital Signs: Increased blood pressure and heart rate noted. Temperature within normal limits. - Cervix Cervix: 8/remains swollen on right side/-1 - Heart Tones Heart Tones: 160-170 with minimal to moderate variability with wide deep variable decels noted - [place]: Contractions every 2-4 minutes - Interventions Interventions: Intrauterine resuscitation completed by staff toxicologist. Pitocin turned off. Oxygen placed on patient. Fetus recovered. Baseline increase noted to 170-180's - Plan Plan: POC per consult with Dr Borja. Urgent section called after discussion with patient Dr Borja signs consent and discusses risks with patient at bedside Patient taken to OR for delivery.
[2016-12-24] MEDS ORDERED: *HR* Promethazine 25 MG/ML VIAL IVP PRN (21:13)
[2016-12-24] MEDS ORDERED: *HR* HYDROmorphone (PF) 1 MG/ML SYRINGE IVP PRN (21:13)
[2016-12-24] MEDS ORDERED: *HR* FentaNYL (PF) 100 MCG/2 ML VIAL ONE ×2 (21:15→21:17)
[2016-12-24] MEDS ORDERED: Ketamine *HR* 500 MG/10 ML MDV ONE (21:16)
--- NOTE | 2016-12-24 22:07 | OB/GYN Procedure Note ---
Section - Date of procedure: 12/24/16 Preop diagnosis: arrest of dilation, category 2 FHT tracing Post-op diagnosis: same Procedure: primary low transverse Surgeon: Maritza Borja Estimated blood loss (cc): 600 Wood Finisher Apprentice: Marcin Spears Anesthesia Type: Epidural section complications: none Disposition: L&D Recovery Room Specimens: Placenta - Infant (s) A Infant Delivery Date: 12/24/16 Delivery Time: 21:16 Presentation: vertex Position: OP Route of delivery: other Gender: Female Viability: Viable Pounds: 9 Ounces: 3 Gram Weight: 4180 kg at 1 minute: 8 at 5 minutes: 9 Placenta: complete extraction Cord: 3 umbilical vessels - Narrative Narrative: Indications: Called by CNM to evaluate patient for C/S. Pt admitted for elective induction of labor. Cervix dilated to 8 cm for several hours with no further progress. Short onset of repetitive variable decels responding to uterine resuscitation and D/C of pitocin. baseline tachycardia then present. Discussed C/S with pt. and who both agreed to proceed. Risks and procedure explained and informed consent obtained. Procedure: Patient was taken to the operating room placed in supine position with left uterine displacement. Skin was then prepped and draped in usual sterile fashion. A timeout procedure was performed. Adequate anesthesia was present. A Pfannenstiel incision was performed and carried down through the fascial layer to the abdominal cavity was entered. A low-transverse uterine incision was then performed and extended bilaterally with bandage scissors. A viable male infant was delivered from an occiput posterior vertex presentation with scores of 8 and 9 at one and 5 minutes respectively, and the infant weighed 9 lbs. 3 oz. The cord was clamped and cut and the was handed to the nursery team. Placenta was then manually removed. The uterine cavity was wiped clean with a wet lap sponge. The uterine incision was closed in a layered fashion with 0 Vicryl suture in a running locking fashion. Good hemostasis was achieved. The paracolic gutters were then gently wiped clean with a wet lap sponge. Again good hemostasis was noted. The fascial layer was closed with 0 PD stratafix suture in a running nonlocking fashion. The subcutaneous layer was irrigated with sterile water and closed with 4-0 Vicryl suture in a running nonlocking fashion continuing to close the skin edges in a running subcuticular fashion. Patient followed procedure well, all sponge needle and instrument counts reported as correct. Assessment blood loss was 600 mL, and the urine in Buckley catheter was clear yellow. A piece of Dermabond mesh was placed over the incision site. She was taken to the recovery room in stable condition.
--- NOTE | 2016-12-25 00:17 | Anesthesia Evaluation Post Op ---
Date of Encounter: 12/25/16 Time of Encounter: 00:14 - Vital Signs Vital Signs: vss - Lungs Lungs: Clear Ascult./Percussion - Airway Airway: Non-obstructed - Cardiovascular Baseline Rhythm - Mental Status Mental Status: Asleep with brisk response to light stimulation - Pain Pain Scale used: Vida (Faces) - Nausea Vomiting Nausea Vomiting: Not Present - Hydration Hydration: Ice chips - Discharge PostOp Status: Transfer Patient to floor
[2016-12-25] MEDS ORDERED: *HR* HYDROmorphone (PF) 1 MG/ML SYRINGE IVP PRN (00:21)
[2016-12-25] MEDS ORDERED: Simethicone 80 MG TAB.CHEW PO PRN (00:21)
[2016-12-25] MEDS ORDERED: Ondansetron 4 MG/2 ML VIAL IVP PRN ×2 (00:21→06:38)
[2016-12-25] MEDS ORDERED: Metoclopramide 10 MG/2 ML VIAL IVP PRN (00:21)
[2016-12-25] MEDS ORDERED: Oxytocin 20 units/ LR 1000 mL 20 UNIT/1,000 ML BAG IVC SCH (00:21)
[2016-12-25] MEDS ORDERED: *HR* OxyCODONE/APAP 5/325 TABLET PO PRN (00:21)
[2016-12-25 04:25] LABS: Mean Corpuscular Volume 84.1 fL (83.0-100.0)
[2016-12-25 04:27] LABS: Hematocrit 28.1 % (35.3-44.9); Hemoglobin 8.9 g/dL (11.5-15.4); Mean Corpuscular HGB Conc 31.7 g/dL (31.6-35.5); Mean Corpuscular Hemoglobin 26.6 pg (28.0-33.3); Mean Platelet Volume 11.3 fL (9.4-12.4); Nucleated Red Blood Cells 0.2 /100 WBC (0); Platelet Count 175 K/mcL (140-400); Red Blood Count 3.34 M/mcL (3.82-4.97); Red Cell Distribution Width 14.1 % (11.5-14.5)
[2016-12-25 04:54] LABS: Lymphocytes # 1.9 K/mcL (0.6-4.6); Monocytes # 1.4 K/mcL (0.0-1.3); Neutrophils # 20.3 K/mcL (1.6-8.9)
[2016-12-25 04:55] LABS: Anisocytosis 1+ (Not Present); Burr Cells 1+ (Not Present); Large Platelets Present (Not Present); Platelet Estimate Normal (Normal); Poikilocytosis 1+ (Not Present); Polychromasia 2+ (Not Present)
[2016-12-25] MEDS ORDERED: Metoclopramide 10 MG/2 ML VIAL IVP ONE (05:46)
[2016-12-25] MEDS ORDERED: Promethazine 12.5 MG in 0.9 % Sodium Chloride 50 ML IVPB PRN (06:36)
[2016-12-25] MEDS ORDERED: Scopolamine Patch 1.5 MG PATCH.TD72 TD PRN (06:36)
[2016-12-25] MEDS ORDERED: Naloxone 0.4 MG/ML INJ IVP PRN (06:40)
[2016-12-25] MEDS ORDERED: Ringers Solution, Lactated 1,000 ML ONE (07:52)
[2016-12-25] MEDS: Ringers Solution, Lactated 1,000 ML IVC SCH (07:58)
[2016-12-25] MEDS ORDERED: Prenatal Vit/FA 1 EACH TABLET PO SCH (09:00)
--- NOTE | 2016-12-25 09:02 | OB/GYN Progress Note ---
Date of Encounter: 12/25/16 Time of Encounter: 09:00 - Assessment and Plan (1) Status post primary low transverse section Current Visit: Yes Status: Acute Continue routine postop/ care (2) Breast feeding status of mother Current Visit: Yes Status: Acute support prn Subjective - Subjective Principal diagnosis: Postop/ day 1 primary c/s Interval history: Patient in bed breast feeding female infant. Patient denies any pain at this time. Patient reports: appetite normal, pain well controlled [place]: doing well, nursing well Objective - Vital Signs Latest vital signs: Vital Signs Temp Pulse Resp BP Pulse Ox 12/25/16 07:59 14 12/25/16 07:25 98.1 F 84 16 129/79 96 12/25/16 03:30 98.2 F 93 12 115/76 94 12/25/16 02:25 97.7 F 98 12 117/76 94 12/25/16 01:24 98.4 F 100 14 133/76 96 12/25/16 01:00 98.8 F 99 14 129/72 97 12/25/16 00:30 99.0 F 103 14 130/75 96 Intake and Output 12/24/16 12/25/16 12/25/16 23:59 07:59 15:59 Intake Total 2000 / 2000 Output Total 700 / 700 1400 / 1400 Balance 1300 / 1300 -1400 / -1400 Intake: IV Fluids 1000 / 1000 Lactated Ringers 1,000 ML 1000 / 1000 @ 125 mls/hr IVC .Q8H [facility] Rx#:[id number] Intake, Autotransfusion 1000 / 1000 Amount Output: Emesis 200 / 200 Estimated Blood Loss 600 / 600 Catheter 100 / 100 1200 / 1200 Other: Weight 69.9 kg Patient Weight 12/25/16 23:59 Weight 69.9 kg - Exam Lungs: bilateral: normal Chest: Normal S1, Normal S2 Extremities: Present: normal Abdomen: Present: normal appearance, soft Incision: Present: normal, dry, intact Uterus: Present: normal, firm Fundal Height: 2 (U/2) - Labs Labs: Laboratory Results - last 24 hr 12/25/16 04:06 WBC 23.6 H D RBC 3.34 L Hgb 8.9 L D Hct 28.1 L MCV 84.1 MCH 26.6 L MCHC 31.7 RDW 14.1 Plt Count 175 MPV 11.3 Seg Neutrophils % 76.0 Band Neutrophils % 10.0 H Lymphocytes % 8.0 Monocytes % 6.0 Neutrophils # 20.3 H Lymphocytes # 1.9 Monocytes # 1.4 H Nucleated RBCs/100 WBC 0.2 H Platelet Estimate Normal Large Platelets Present A Polychromasia 2+ A Poikilocytosis 1+ A Anisocytosis 1+ A Angélica Cells 1+ A
[2016-12-25] MEDS: Ibuprofen 600 MG TABLET PO PRN ×2 (14:07→21:11)
[2016-12-26] MEDS: Ibuprofen 600 MG TABLET PO PRN (08:17)
[2016-12-26 08:38] VITALS: BP 126/81
--- NOTE | 2016-12-26 10:33 | Discharge Summary ---
Date of Encounter: 12/26/16 Time of Encounter: 10:31 - Discharge Diagnosis (1) Status post primary low transverse section Priority: Primary Status: Acute Comments: pt meeting all milestones, pain well managed, desires discharge. - Discharge Medications Prescriptions: OxyCODONE/APAP 5/325 [Percocet 5/325 MG] 1 each PO Q4HR PRN #14 tablet PRN Reason: Moderate pain 4-6 Ibuprofen [Motrin] 600 mg PO Q6HR PRN #60 tablet PRN Reason: Cramping Docusate [Colace] 100 mg PO BID #60 capsule Famotidine [Pepcid] 40 mg PO BID #60 tablet Ferrous Sulfate 325 mg PO DAILY #60 tablet Home Medications: Vit Calc,Iron,Folic [ Vitamins] 1 tab PO DAILY 10/08/16 [ History] Docusate [Colace] 100 mg PO BID #60 capsule 12/26/16 [Rx] Famotidine [Pepcid] 40 mg PO BID #60 tablet 12/26/16 [Rx] Ferrous Sulfate 325 mg PO DAILY #60 tablet 12/26/16 [Rx] Ibuprofen [Motrin] 600 mg PO Q6HR PRN #60 tablet 12/26/16 [Rx] OxyCODONE/APAP 5/325 [Percocet 5/325 MG] 1 each PO Q4HR PRN #14 tablet 12/26/16 [Rx] Allergies/Adverse Reactions: Allergies No Known Allergies Allergy (Verified 11/27/16 14:47) Data Procedures and tests throughout hospitalization: Laboratory Tests 12/24/16 12/24/16 12/25/16 06:50 06:50 04:06 WBC 12.9 H 23.6 H D RBC 4.18 3.34 L Hgb 11.2 L 8.9 L D Hct 35.0 L 28.1 L MCV 83.7 84.1 MCH 26.8 L 26.6 L MCHC 32.0 31.7 RDW 14.2 14.1 Plt Count 190 175 MPV 11.6 11.3 Immature Gran % 2.6 Seg Neutrophils % 71.6 76.0 Band Neutrophils % 10.0 H Lymphocytes % 17.9 8.0 Monocytes % 6.1 6.0 Eosinophils % 1.3 Basophils % 0.5 Neutrophils # 9.2 H 20.3 H Lymphocytes # 2.3 1.9 Monocytes # 0.8 1.4 H Eosinophils # 0.2 Basophils # 0.1 Nucleated RBCs/100 WBC 0.5 H 0.2 H Platelet Estimate Normal Large Platelets Present A Immature Plt Fraction 11.7 H Polychromasia 2+ A Poikilocytosis 1+ A Anisocytosis 1+ A [place] Cells 1+ A BUN 8 Creatinine 0.62 Est GFR ( Amer) > 60 Est GFR (Non-Af Amer) > 60 BUN/Creatinine Ratio 13 Uric Acid 4.9 AST 28 ALT 12 Lactate Dehydrogenase 365 H Date of admission: 12/24/16 05:58 Primary care physician: Alejandro Valdez, Discharging clinician: Joya Hill Anticipated date of discharge: 12/26/16 - Patient Status Disposition: Home, Self-Care Condition: Good Functional capacity at discharge: independent ambulation Overall status at discharge: patient is back to baseline - Discharge Instructions Follow Up With: Alejandro Valdez DO [Primary Care Provider] - Isabela Rodriguez CNM [Non-Partnered Physician] - Additional Instructions: Perineal Care: Always wipe front to back Change your pad frequently Use your deepti bottle with warm water and spray front to back Do not douche, use tampons, have sexual intercourse or put anything in your vagina for 4-6 weeks after delivery Bleeding: Vaginal bleeding can last up to 6 weeks Your menstrual period may return as early as 6 weeks after you are discharged from the hospital Becca/Stitches Care: Vaginal Delivery Vaginal stitches will dissolve within 4-6 weeks Follow perineal care instructions Care Stitches will dissolve on their own If you have becca, they will need to be removed in the doctors office within 5-7 days. You may shower with stitches or becca Drip plan or soapy water over the incision to clean. Pat dry gently with a clean towel. Make sure you completely dry under the skin folds DO NOT USE powders, lotions, rubbing alcohol or hydrogen peroxide on or around your incision. This will slow your wound healing It is normal to have soreness, burning, tingling, itchiness and/or numbness as your incision heals Activity: Rest frequently Do not lift anything heavier than a gallon of milk, up to 10-15 pounds No driving for 1-2 weeks for Vaginal delivery No driving for 2-4 weeks for delivery Take stairs slowly, one at a time Gradually increase your daily activity until you are back to your normal routine Do not exercise until you have had your follow-up appointment Bathing: Take a shower daily Do not take a tub bath for the first 4 weeks Diet: Drink plenty of water and fruit juices Eat a well-balanced diet with foods high in fiber such as fruits and vegetables Depression: Your hormones have a major impact on your feelings and emotions. Hormone imbalance may cause changes in your mood, creating unfamiliar thoughts and actions. Support is available to help you understand and cope with these feelings and mood changes. If you answer yes to any of the following questions, please call your health care provider: Are you having trouble sleeping? Are you feeling isolated? Have you lost your appetite? Are you having thoughts of hurting yourself or others? WARNING SIGNS: Heavy bleeding from the vagina (blood is bright red and soaks a sanitary pad in an hour or less.) Passing a blood clot larger than your fist Discharge from the vagina that has a bad odor Temperature over 100.4 F, or if you feel cold and have chills An episiotomy site that is warm, swollen or oozing. Use a mirror if needed Urination (pee) that is painful, very red and swollen or leaking fluid An incision that is painful, very red and swollen and leaking fluid An incision that has come open Breasts that are painful or full with flu like symptoms Redness, warmth or swelling in the calf of your leg Trouble breathing, dizziness, visual disturbance or faintness *Notify your health care provider immediately or go to the nearest Emergency Room if you experience any of the above signs.* To contact the nurses station 24 hours a day, For non-urgent, routine questions, please call the office at - Diet and Activity Activity: resume usual activities as tolerated Diet: regular diet Hospital Course Reason for admission: induction of labor, IUP at term Delivery: section Episiotomy: none Laceration: none Other procedures: none complications: none Discharge diagnosis: IUP at term delivered baby: female Hospital course: Section - Date of procedure: 12/24/16 Preop diagnosis: arrest of dilation, category 2 FHT tracing Post-op diagnosis: same Procedure: primary low transverse Surgeon: Maritza Borja Estimated blood loss (cc): 600 A Auxiliary: Marcin Spears Anesthesia Type: Epidural section complications: none Disposition: L&D Recovery Room Specimens: Placenta - (s) A Delivery Date: 12/24/16 Infant Delivery Time: 21:16 Presentation: vertex Position: OP Route of delivery: other Gender: Female Viability: Viable Pounds: 9 Ounces: 3 Gram Weight: 4180 kg at 1 minute: 8 at 5 minutes: 9 Placenta: complete extraction Cord: 3 umbilical vessels Stable in and appropriate for discharge OAARS reviewed Time Attestation: Total time spent providing and/or coordinating discharge services: - VTE Reasons for not Prescribing Prophylaxis: Treatment not Indicated - Low risk for VTE Documentation of Mechanical Device: Intermittent pneumatic compression device Exam - Constitutional Vitals: Temp Pulse Resp BP Pulse Ox 98.4 F 103 12 126/81 98 12/26/16 08:36 12/26/16 08:36 12/26/16 08:36 12/26/16 08:36 12/26/16 04:55 General appearance IM: A&O X 3, pleasant, no acute distress - Respiratory Respiratory exam: Present: CTAB - Cardiovascular Cardiovascular exam IM: Present: RRR, +S1, +S2 - GI/Abdominal GI/Abdominal exam IM: normal bowel sounds, soft Incision: dry, intact - Uterine Tone: Firm Uterus Position: At Umbilicus - Extremities Exam Extremities exam IM: Present: normal capillary refill, normal inspection, pedal edema - Neurological Exam Neurological exam: normal gait, oriented X3 - Psychiatric Additional comments: Reports good mood.
== END 2016-12-26 10:30 | disposition home or self-care (01) | DRG 540 ==
LOC: 1NENULAB 05:58 → 1NENUOBS 12-25 00:21
PROVIDERS: ADMIT Advanced Practice Midwife